=== PATIENT | female | born 1950 | race Caucasian/White ===

== ENCOUNTER → 2017-03-10 | Outpatient (CLI) | payer MEDICARE ==
[~2017-03-10] MED LIST: 1-ME1LIQ PO; ALBU8I INH; BENA10TA PO; CITA20TA4 PO; DIPH50TA PO; ESTR1TAB PO; HYDR10SO PO; LORA-475 PO; LORA5SOL3 PO; LORTA10 PO; MEDR2.5T19 PO; NICO2GUM; OMEP20TA39 PO; ROBISYP PO; SENN8.6C; SOMA350T PO
[2017-03-10 09:43] LABS: HEMATOCRIT 40.5 % (35.0-46.0); MEAN CELL VOLUME 92.1 FL (80.0-100.0); MEAN CORPUSCULAR HEMOGLOBIN 31.1 PG (27.0-34.0); MEAN CORPUSCULAR HGB CONC 33.8 % (32.0-36.0); PLATELET COUNT 282 TH/MM3 (150-450); RED BLOOD COUNT 4.41 MIL/MM3 (4.00-5.30); RED CELL DISTRIBUTION WIDTH 13.8 % (11.6-17.2); REVIEW FLAG FINAL; WHITE BLOOD COUNT 7.1 TH/MM3 (4.0-11.0)
[2017-03-10 13:19] LABS: ANION GAP 9 MEQ/L (5-15); AST (GOT) 13 U/L (15-37); BLOOD UREA NITROGEN 14 MG/DL (7-18); CHLORIDE 105 MEQ/L (98-107); GLOMERULAR FILTRATION RATE 79 ML/MIN (>89); GLUCOSE,FASTING 86 MG/DL (74-99); POTASSIUM 3.5 MEQ/L (3.5-5.1); SODIUM (NA) 140 MEQ/L (136-145)
[2017-03-10 13:33] LABS: ALKALINE PHOSPHATASE 78 U/L (45-117); ALT (GPT) 17 U/L (10-53); HDL CHOLESTEROL 71.9 MG/DL (40.0-60.0); LDL CHOLESTEROL 166 MG/DL (0-99); TOTAL BILIRUBIN ADULT 0.4 MG/DL (0.2-1.0)
== END ==
LOC: OLAB 09:25
PROVIDERS: ATTEND Family Medicine
DX: M79.1 Myalgia (principal); E78.4 Other hyperlipidemia; M54.9 Dorsalgia, unspecified; F41.9 Anxiety disorder, unspecified; K21.0 Gastro-esophageal reflux disease with esophagitis; I10 Essential (primary) hypertension; Z68.33 Body mass index [BMI] 33.0-33.9, adult
CPT/HCPCS: 36415; 80053; 80061; 84443; 85027; 85652

== ENCOUNTER → 2017-03-20 | Outpatient (CLI) | payer MEDICARE ==
[2017-03-20 13:16] LABS: BACTERIA, URINE RARE /hpf; BLOOD, URINE NEG (NEG); COMMENT (UR) CULT NOT INDICATED; CULTURE IF INDICATED CULT NOT INDICATED; GLUCOSE,URINE NEG (NEG); KETONE, URINE NEG (NEG); NITRITE,URINE NEG (NEG); PH, URINE 5.5 (5.0-8.5); SQUAMOUS EPITHELIAL CELL URINE 1 /hpf (0-5); URINE COLOR YELLOW (YELLW/STRAW)
== END ==
LOC: OLAB 10:47
PROVIDERS: ATTEND Family Medicine
DX: R30.0 Dysuria (principal)
CPT/HCPCS: 81001

== ENCOUNTER → 2017-07-16 | Outpatient (CLI) | payer MEDICARE ==
[2017-07-16 09:32] LABS: HEMATOCRIT 41.6 % (35.0-46.0); MEAN CELL VOLUME 90.2 FL (80.0-100.0); MEAN CORPUSCULAR HEMOGLOBIN 30.6 PG (27.0-34.0); MEAN CORPUSCULAR HGB CONC 33.9 % (32.0-36.0); PLATELET COUNT 328 TH/MM3 (150-450); RED BLOOD COUNT 4.61 MIL/MM3 (4.00-5.30); RED CELL DISTRIBUTION WIDTH 13.8 % (11.6-17.2); REVIEW FLAG FINAL; WHITE BLOOD COUNT 8.1 TH/MM3 (4.0-11.0)
[2017-07-16 13:02] LABS: ANION GAP 8 MEQ/L (5-15); AST (GOT) 11 U/L (15-37); BICARBONATE 25.1 MEQ/L (21.0-32.0); BLOOD UREA NITROGEN 17 MG/DL (7-18); CHLORIDE 103 MEQ/L (98-107); GLOMERULAR FILTRATION RATE 77 ML/MIN (>89); GLUCOSE,FASTING 87 MG/DL (74-99); POTASSIUM 4.3 MEQ/L (3.5-5.1); SODIUM (NA) 136 MEQ/L (136-145)
[2017-07-16 13:14] LABS: ALKALINE PHOSPHATASE 83 U/L (45-117); ALT (GPT) 18 U/L (10-53); HDL CHOLESTEROL 67.8 MG/DL (40.0-60.0); LDL CHOLESTEROL 177 MG/DL (0-99); TOTAL BILIRUBIN ADULT 0.3 MG/DL (0.2-1.0)
== END ==
LOC: OLAB 08:38
PROVIDERS: ATTEND Family Medicine
DX: I10 Essential (primary) hypertension (principal); E78.4 Other hyperlipidemia; M54.9 Dorsalgia, unspecified; K21.9 Gastro-esophageal reflux disease without esophagitis; M25.50 Pain in unspecified joint; R76.8 Other specified abnormal immunological findings in serum; F17.200 Nicotine dependence, unspecified, uncomplicated
CPT/HCPCS: 36415; 80053; 80061; 84443; 85027; 85652; 86038; 86225

== ENCOUNTER → 2017-12-02 | Outpatient (CLI) | payer MEDICARE ==
[2017-12-02 08:58] LABS: AUTOMATED NEUTROPHIL # 3.7 TH/MM3 (1.8-7.7); BASOPHIL % 0.5 % (0.0-2.0); EOSINOPHIL # 0.2 TH/MM3 (0-0.4); EOSINOPHIL % 3.6 % (0.0-4.0); HEMATOCRIT 43.5 % (35.0-46.0); HEMOGLOBIN 14.5 GM/DL (11.6-15.3); LYMPH % 32.9 % (9.0-44.0); LYMPHOCYTE # 2.2 TH/MM3 (1.0-4.8); MEAN CORPUSCULAR HEMOGLOBIN 30.4 PG (27.0-34.0); MEAN CORPUSCULAR HGB CONC 33.4 % (32.0-36.0); MEAN PLATELET VOLUME 8.6 FL (7.0-11.0); MONO % 8.2 % (0.0-8.0); MONOCYTE # 0.6 TH/MM3 (0-0.9); NEUT % 54.8 % (16.0-70.0); PLATELET COUNT 316 TH/MM3 (150-450); RED BLOOD COUNT 4.78 MIL/MM3 (4.00-5.30); RED CELL DISTRIBUTION WIDTH 13.9 % (11.6-17.2); WHITE BLOOD COUNT 6.7 TH/MM3 (4.0-11.0)
[2017-12-02 12:58] LABS: ALBUMIN 3.9 GM/DL (3.4-5.0); AST (GOT) 14 U/L (15-37); BICARBONATE 26.2 MEQ/L (21.0-32.0); BLOOD UREA NITROGEN 9 MG/DL (7-18); CALCIUM 8.9 MG/DL (8.5-10.1); CHLORIDE 104 MEQ/L (98-107); CREATININE 0.72 MG/DL (0.50-1.00); GLOMERULAR FILTRATION RATE 81 ML/MIN (>89); GLUCOSE,FASTING 99 MG/DL (74-99); SODIUM (NA) 138 MEQ/L (136-145)
[2017-12-02 12:59] LABS: ALT (GPT) 15 U/L (10-53); CHOLESTEROL 278 MG/DL (120-200)
[2017-12-02 13:07] LABS: WESTERGREN SEDIMENTATION RATE 6 mm/hr (0-30)
[2017-12-02 13:09] LABS: ALKALINE PHOSPHATASE 78 U/L (45-117); CHOLESTEROL/ HDL RATIO 3.86 RATIO; HDL CHOLESTEROL 71.9 MG/DL (40.0-60.0); LDL CHOLESTEROL 184 MG/DL (0-99); TOTAL BILIRUBIN ADULT 0.6 MG/DL (0.2-1.0); TOTAL PROTEIN 7.5 GM/DL (6.4-8.2); TRIGLYCERIDES 110 MG/DL (42-150)
== END ==
LOC: OLAB 08:18
PROVIDERS: ATTEND Family Medicine
DX: E78.4 Other hyperlipidemia (principal); M25.50 Pain in unspecified joint; I10 Essential (primary) hypertension; K21.9 Gastro-esophageal reflux disease without esophagitis
CPT/HCPCS: 36415; 80053; 80061; 84443; 85025; 85652

== ENCOUNTER → 2018-04-07 | Outpatient (CLI) | payer MEDICARE ==
[2018-04-07 10:24] LABS: HEMATOCRIT 44.6 % (35.0-46.0); HEMOGLOBIN 14.8 GM/DL (11.6-15.3); MEAN CELL VOLUME 91.4 FL (80.0-100.0); MEAN CORPUSCULAR HEMOGLOBIN 30.4 PG (27.0-34.0); MEAN CORPUSCULAR HGB CONC 33.2 % (32.0-36.0); MEAN PLATELET VOLUME 7.8 FL (7.0-11.0); PLATELET COUNT 303 TH/MM3 (150-450); RED BLOOD COUNT 4.88 MIL/MM3 (4.00-5.30); RED CELL DISTRIBUTION WIDTH 14.1 % (11.6-17.2); WHITE BLOOD COUNT 6.4 TH/MM3 (4.0-11.0)
[2018-04-07 14:36] LABS: AST (GOT) 16 U/L (15-37); BLOOD UREA NITROGEN 14 MG/DL (7-18); CALCIUM 9.1 MG/DL (8.5-10.1); CHLORIDE 103 MEQ/L (98-107); CHOLESTEROL 279 MG/DL (120-200); CREATININE 0.81 MG/DL (0.50-1.00); GLOMERULAR FILTRATION RATE 71 ML/MIN (>89); GLUCOSE,FASTING 99 MG/DL (74-99); SODIUM (NA) 138 MEQ/L (136-145)
[2018-04-07 14:46] LABS: ALKALINE PHOSPHATASE 77 U/L (45-117); ALT (GPT) 19 U/L (10-53); C-REACTIVE PROTEIN 0.66 MG/DL (0.00-0.30); CHOLESTEROL/ HDL RATIO 4.45 RATIO; HDL CHOLESTEROL 62.6 MG/DL (40.0-60.0); LDL CHOLESTEROL 199 MG/DL (0-99); TOTAL BILIRUBIN ADULT 0.3 MG/DL (0.2-1.0); TOTAL PROTEIN 7.7 GM/DL (6.4-8.2); TRIGLYCERIDES 89 MG/DL (42-150)
== END ==
LOC: OLAB 10:00
PROVIDERS: ATTEND Family Medicine
DX: E78.4 Other hyperlipidemia (principal); M25.50 Pain in unspecified joint; I10 Essential (primary) hypertension; K21.9 Gastro-esophageal reflux disease without esophagitis; R76.8 Other specified abnormal immunological findings in serum
CPT/HCPCS: 36415; 80053; 80061; 84443; 85027; 85652; 86140